=== PATIENT | male | born 1970 | race Caucasian/White ===

== ENCOUNTER 2018-01-27 08:32 | Emergency (ER) | payer OTHER ==
[~2018-01-27] VITALS: Ht 185.4 cm; Wt 81.7 kg
[~2018-01-27 08:32] MED LIST: AMOX500 PO; HYDACE5 PO; IBUP800 PO; NAPR500 PO; PENVK500 PO; RXHYDACE PO
[2018-01-27] MEDS ORDERED: Monodox100 MG PO (08:48)
== END 2018-01-27 09:03 | disposition home or self-care (01) ==
LOC: ER 08:32
DX: S70.362A Insect bite (nonvenomous), left thigh, initial encounter (principal); W57.XXXA Bitten or stung by nonvenomous insect and other nonvenomous arthropods, initial encounter; Z88.8 Allergy status to other drugs, medicaments and biological substances; Z79.899 Other long term (current) drug therapy
CPT/HCPCS: 99282

== ENCOUNTER 2018-02-03 19:13 | Emergency (ER) | payer OTHER ==
[~2018-02-03] VITALS: Ht 185.4 cm; Wt 81.7 kg
[~2018-02-03 19:13] MED LIST changes: +Monodox100 MG PO
[2018-02-03] MEDS ORDERED: Robaxin500 MG PO (19:45)
[2018-02-03] MEDS ORDERED: IBUP600 PO (19:45)
== END 2018-02-03 19:53 | disposition home or self-care (01) ==
LOC: ER 19:13
DX: S16.1XXA Strain of muscle, fascia and tendon at neck level, initial encounter (principal); Z88.8 Allergy status to other drugs, medicaments and biological substances; Z79.899 Other long term (current) drug therapy; X50.0XXA Overexertion from strenuous movement or load, initial encounter; Y99.0 Civilian activity done for income or pay
CPT/HCPCS: 99283

== ENCOUNTER 2019-03-03 06:10 | Day surgery (SDC) | payer OTHER ==
[~2019-03-03] VITALS: Ht 180 cm; Wt 74.7 kg
[~2019-03-03 06:10] MED LIST changes: +DICLOFENAC SOD100 G1 TOP; +IBUP600 PO; +Robaxin500 MG PO
--- NOTE | 2019-03-03 06:47 | NUR ---
Ambulatory in Day Surgery History, Chart, Medications and Allergies reviewed before start of procedure.Patient confirms NPO status and agrees with scheduled surgery. Surgical site prepped with 2% Chlorhexidine cloth wipe.
--- NOTE | 2019-03-03 07:58 | NUR ---
PATIENT STABLE, ASLEEP, MAC ONLY SO SKIPPED PACU RECOVERY AND DIRECTLY TO STEPDOWN. WILL CONTINUE TO REASSES AND MONITOR CLOSELY.
--- NOTE | 2019-03-03 07:59 | NUR ---
PER DR DODSON NO THREE LEAD NECESSARY.
--- NOTE | 2019-03-03 09:04 | NUR ---
Patient up to Ambulate independently. Gait steady. Discharge instructions reviewed with patient. Patient verbalizes understanding. Copy given to patient to take home. Patient States Post-Procedure ride home has been arranged. Discharged via wheelchair to private car for ride home.
== END 2019-03-03 22:35 | disposition home or self-care (01) ==
LOC: ORSCMMR 06:10 → ORD 07:30 → ORSCMMR 12:30
PROVIDERS: Orthopaedic Surgery
PROC: 0LN80ZZ Release Left Hand Tendon, Open Approach (ICD-10-PCS; principal; 2019-03-03 07:30)
DX: M65.312 Trigger thumb, left thumb (principal)
CPT/HCPCS: J0690; J2250; J2704; J3010; J7120

== ENCOUNTER 2019-05-27 22:15 | Emergency (ER) | payer OTHER ==
[~2019-05-27] VITALS: Ht 185.4 cm; Wt 77.1 kg
== END 2019-05-27 23:30 | disposition home or self-care (01) ==
LOC: ER 22:15
DX: M25.471 Effusion, right ankle (principal); Z88.8 Allergy status to other drugs, medicaments and biological substances
CPT/HCPCS: 29515; 73610; 99283-25; L1906

== ENCOUNTER 2020-04-08 18:37 | Emergency (ER) | payer OTHER ==
[~2020-04-08] VITALS: Ht 185.4 cm; Wt 81.7 kg
[2020-04-08] MEDS ORDERED: IBUP800 PO (20:17)
[2020-04-08] MEDS ORDERED: Robaxin-750750 MG PO (20:17)
== END 2020-04-08 20:33 | disposition home or self-care (01) ==
LOC: ER 18:37
DX: R07.89 Other chest pain (principal); M54.2 Cervicalgia; Z88.8 Allergy status to other drugs, medicaments and biological substances; V89.2XXA Person injured in unspecified motor-vehicle accident, traffic, initial encounter
CPT/HCPCS: 71250; 72125; 99284-25

== ENCOUNTER 2022-05-05 03:11 | Emergency (ER) | payer OTHER ==
[~2022-05-05] VITALS: Ht 182.9 cm; Wt 83.9 kg
[~2022-05-05 03:11] MED LIST changes: +Robaxin-750750 MG PO; +TIZA4 PO
[2022-05-05] MEDS ORDERED: ONDA4ODT MM (03:56)
[2022-05-05 04:08] LABS: Influenza A, PCR NEGATIVE (NEGATIVE); Influenza B, PCR NEGATIVE (NEGATIVE); Resp Syncytial Virus, PCR NEGATIVE (NEGATIVE)
[2022-05-05 04:10] LABS: SARS-Cov-2 (COVID-19) PCR, MMC POSITIVE (NEGATIVE)
== END 2022-05-05 06:52 | disposition home or self-care (01) ==
LOC: ER 03:11
PROVIDERS: Emergency Medicine
DX: U07.1 COVID-19 (principal); Z88.8 Allergy status to other drugs, medicaments and biological substances; Z79.899 Other long term (current) drug therapy
CPT/HCPCS: 0241U; A9270; J1885

== ENCOUNTER 2023-10-16 19:25 | Emergency (ER) | payer OTHER ==
[~2023-10-16] VITALS: Ht 182.9 cm; Wt 85.7 kg
[~2023-10-16 19:25] MED LIST changes: +ONDA4ODT MM
[2023-10-16 19:56] VITALS: BP 125/82
== END 2023-10-16 20:29 | disposition home or self-care (01) ==
LOC: ER 19:25
DX: S05.02XA Injury of conjunctiva and corneal abrasion without foreign body, left eye, initial encounter (principal); X58.XXXA Exposure to other specified factors, initial encounter; Z88.8 Allergy status to other drugs, medicaments and biological substances; Z79.899 Other long term (current) drug therapy
CPT/HCPCS: 99283; A9270

== ENCOUNTER 2024-11-30 15:49 | Emergency (ER) | payer OTHER ==
[~2024-11-30] VITALS: Ht 182.9 cm; Wt 82.5 kg
[2024-11-30 15:56] VITALS: BP 119/65
[2024-11-30] MEDS ORDERED: Acetaminophen 325 MG TABLET PO ONE (16:05)
[2024-11-30 16:23] LABS: BASOPHILS ABSOLUTE AUTO 0.02 K/mm3 (0.00-0.23); BASOPHILS PERCENT AUTO 0 % (0-2); EOSINOPHILS ABSOLUTE AUTO 0.01 K/mm3 (0.00-0.68); EOSINOPHILS PERCENT AUTO 0 % (0-6); Hematocrit 41.8 % (37.0-53.0); Hemoglobin 14.4 g/dL (13.5-17.5); IMMATURE GRAN ABSOLUTE AUTO 0.02 K/mm3 (0.00-0.10); IMMATURE GRAN PERCENT AUTO 0 % (0-1); LYMPHOCYTES ABSOLUTE AUTO 0.61 K/mm3 (0.84-5.20); LYMPHOCYTES PERCENT AUTO 7 % (21-46); MONOCYTES ABSOLUTE AUTO 0.55 K/mm3 (0.16-1.47); MONOCYTES PERCENT AUTO 7 % (4-13); Mean Corpuscular HGB 29.6 pg (26.0-34.0); Mean Corpuscular HGB Conc 34.4 g/dL (31.5-36.5); Mean Corpuscular Volume 86 fL (80-100); Mean Platelet Volume 9.1 fL (9.1-12.4); NEUTROPHILS ABSOLUTE AUTO 7.06 K/mm3 (1.96-9.15); NEUTROPHILS PERCENT AUTO 85 % (41-73); Platelet Count 166 K/mm3 (150-400); RDW Coefficient Variation 12.3 % (11.7-14.2); RDW Standard Deviation 38.9 fL (35.1-46.3); Red Blood Cell Count 4.86 M/mm3 (4.30-5.90); White Blood Cell Count 8.27 K/mm3 (4.00-11.30)
[2024-11-30 16:38] LABS: CORONAVIRUS COVID-19 AG Negative (NEGATIVE); INFLUENZA A AG Negative (NEGATIVE); INFLUENZA B AG Negative (NEGATIVE)
[2024-11-30 16:47] LABS: Albumin, Blood 3.5 g/dL (3.4-5.0); Albumin/Globulin Ratio 1.1 (0.8-1.8); Bilirubin, Total 0.6 mg/dL (0.1-1.0); Bun/Creatinine Ratio 14.1 (12.0-20.0); Calcium, Blood 8.5 mg/dL (8.5-10.1); Creatinine, Blood 0.92 mg/dL (0.60-1.20); Globulin, Blood 3.3 g/dL (2.2-4.0); Total Protein, Blood 6.8 g/dL (6.4-8.2)
== END 2024-11-30 19:21 | disposition home or self-care (01) ==
LOC: ER 15:49
PROVIDERS: Student in an Organized Health Care Education/Training Program
DX: J06.9 Acute upper respiratory infection, unspecified (principal); Z88.8 Allergy status to other drugs, medicaments and biological substances; Z79.899 Other long term (current) drug therapy
CPT/HCPCS: 71046; 80053; 85025; 87428-QW; 93005; 93010; 99284-25